=== PATIENT | female | born 1995 | race Caucasian/White ===

== ENCOUNTER 2016-03-11 14:50 | Emergency (ER) | payer BC ==
[2016-03-11] MEDS ORDERED: Acetaminophen 500 MG TAB ONE (15:44)
[2016-03-11 16:14] LABS: Bilirubin Negative (Negative); Blood, Urine Moderate (Negative); Glucose, Urine (Dipstick) Negative (Negative); Ketone, Urine 15 mg/dL (Negative); Nitrite Negative (Negative); Protein, Urine (Dipstick) Negative (Neg-Trace); Urobilinogen 0.2 mg/dL (0.2-1.0)
[2016-03-11 16:22] LABS: Bacteria/HPF 1+ HPF (None Seen); Squamous Epithelial 0-3 HPF (0-3); WBC/HPF 0-3 HPF (0-3)
[2016-03-11] MEDS ORDERED: Cephalexin 500 MG CAP ONE (16:31)
--- NOTE | 2016-03-11 16:35 | ERRECORD ---
[facility] EMERGENCY RECORD HPI BACK (16:22 JLOY) CHIEF COMPLAINT: Patient presents for evaluation of Pt with constant low back pain since waking up this am. No other symptoms. She reports it feels a little like period cramps. She is 25 wks with an uncomplicated . Decreased appetite today. HISTORIAN: History provided by patient. MECHANISM OF INJURY: No apparent mechanism of injury. LOCATION: Symptoms are localized to the back, to lumbar spine, left lumbar region, right lumbar region. QUALITY: Pain is dull in nature. TIME COURSE: Patient unable to describe onset of symptoms, There has been no change in the patient's symptoms over time. ASSOCIATED WITH: No associated abdominal pain, No associated bladder incontinence, No associated bowel incontinence, No associated dysuria, No associated fever, No associated motor weakness, No associated numbness, No associated problems with urination, No associated radiation of pain, No associated sciatica, No associated tingling. EXACERBATED BY: Patient's condition exacerbated by movement. RELIEVED BY: Patient's condition relieved by nothing. ROS (16:23 JLOY) CONSTITUTIONAL: Historian denies chills, denies fever. ENT: Historian denies rhinorrhea, denies sore throat. CARDIOVASCULAR: Historian denies chest pain. RESPIRATORY: Historian denies cough, denies shortness of breath, denies sputum. GI: Historian denies abdominal pain, reports appetite changes, denies diarrhea, denies vomiting. GENITOURINARY FEMALE: Historian denies dysuria, denies frequency, denies hematuria, reports , denies vaginal bleeding, denies vaginal discharge. MUSCULOSKELETAL: Historian reports back pain. NEUROLOGIC: Historian denies dizziness, denies headache. PAST MEDICAL HISTORY MEDICAL HISTORY: Flu vaccine up to date, Tetanus immunization up to date, No past medical history. (14:58 JNOL) FEMALE SURGICAL HISTORY: Patient has no surgical history. (14:58 JNOL) PSYCHIATRIC HISTORY: Psychiatric history includes, anxiety, depression. (14:58 JNOL) SOCIAL HISTORY: Patient currently uses tobacco, Patient denies alcohol use, Patient denies drug use,. (14:58 JNOL) NOTES: Nursing records reviewed, Agree with nursing records. (16:25 JLOY) KNOWN ALLERGIES &a-1R&a+25V*p+0X*b3730J*c202B*c15G*c2P*p-0X&a-25V&a+1R Name: Kristy Naranjo : 1995 F20 MedRec: [id number] AcctNum: [id number] Prepared: Sat Mar 11, 2016 16:46 by Interface Page 1 of 3 pMD [facility] EMERGENCY RECORD No Known Allergies CURRENT MEDICATIONS No recorded medications VITAL SIGNS VITAL SIGNS: BP: 161/82, Pulse: 92, Resp: 16, Temp: 97.7 (Oral), Pain: 7, O2 sat: 99 on Room Air, Time: 03/11/2016 14:55. (14:55 JNOL) BP: 135/78, Pulse: 86, Resp: 16, Pain: 7, O2 sat: 99 on Room Air, Time: 03/11/2016 16:18. (16:18 JNOL) PHYSICAL EXAM (16:24 JLOY) CONSTITUTIONAL: Vital Signs Reviewed, Patient appears non toxic, Patient alert and oriented to person, place and time. EYES: Eye exam included findings of eyelids normal to inspection, Pupils equally round and reactive to light, Conjunctiva normal. ENT: Mouth exam normal, mucous membranes moist. RESPIRATORY CHEST: Respiratory exam included findings of no respiratory distress, Breath sounds clear, No wheezing, No rales, No rhonchi, Chest exam included findings of chest movement symmetrical. CARDIOVASCULAR: Cardiovascular exam included findings of heart rate regular rate and rhythm, Heart sounds normal. ABDOMEN FEMALE: Abdominal exam included findings of abdomen nontender, Bowel sounds normal, Gravid uterus consistent with dates, nontender. BACK: Back exam included findings of normal inspection, range of motion normal, no tenderness. UPPER EXTREMITY: Upper extremity exam included findings of inspection normal, Radial pulse normal, no cyanosis, no clubbing, no edema. LOWER EXTREMITY: Lower extremity exam included findings of inspection normal, no edema, no calf tenderness. NEURO: Neuro exam findings include patient oriented to person, place and time, [place] coma scale 15, Speech normal. SKIN: Skin exam included findings of skin warm, dry, and normal in color, no rash. PSYCHIATRIC: Normal affect. MEDICATION ADMINISTRATION SUMMARY Drug Name: Keflex, Dose Ordered: 500 mg, Route: Oral, Status: Given, Time: 16:36 03/11/2016, Drug Name: acetaminophen oral, Dose Ordered: 1000 mg, Route: Oral, Status: Given, Time: 15:47 03/11/2016, Detailed record available in Medication Service section. PROBLEM LIST No recorded problems DIAGNOSIS (16:28 JOSAFAT) &a-1R&a+25V*p+0X*[id number]*c202B*c15G*c2P*p-0X&a-25V&a+1R Name: Kristy Naranjo : 1995 F20 MedRec: [id number] AcctNum: [id number] Prepared: Jesse Mar 11, 2016 16:46 by Interface Page 2 of 3 pMD [facility] EMERGENCY RECORD FINAL: PRIMARY: Low back pain, ADDITIONAL: UTI. PRESCRIPTION (16:28 JOSAFAT) Keflex: CAPSULE : 500 mg : ORAL : Quantity: 500 Unit: mg Route: ORAL Schedule: 3 times a day Dispense: 10 days May substitute. Refills: No Refills . NOTES: No Refills. DISPOSITION PATIENT: Disposition Type: Discharge, Disposition: *Discharge Home. (16:28 JOSAFAT) Patient left the department. (16:39 MARY ALICE) Kolb: JOSAFAT=MD Paul, Kian WHEAT=MINERVA Paul, Svetlana &a-1R&a+25V*p+0X*o0569N*c202B*c15G*c2P*p-0X&a-25V&a+1R Name: Kristy Naranjo : 1995 F20 MedRec: [id number] AcctNum: [id number] Prepared: Jesse Mar 11, 2016 16:46 by Interface Page 3 of 3 pMD MTDD
--- NOTE | 2016-03-11 16:40 | PICIS ---
[facility] EMERGENCY RECORD TRIAGE (14:57 JNOL) TRIAGE NOTES: Patient states she is 25 weeks ([facility] is OB) and has been having lower back pain all day. Patient states that she can normally get pain to stop, but has been unable to do so today. Denies bleeding or problems urinating or abdominal pain. (14:57 JNOL) PATIENT: NAME: Kristy Naranjo, AGE: 20, GENDER: female, : Sat 1995, TIME OF GREET: Sat Mar 11, 2016 14:51, PREFERRED LANGUAGE: Tajik, ETHNICITY: Not or , ECODE BILLING MAP: [facility], SSN: [id number], Zip Code: [address], KG WEIGHT: 74.84, PHONE: , , , PERSON ID: [id number], PCP: MD RUIZ RUSSELL. (14:57 JNOL) COMPLAINT: LOW BACK PAIN. (14:57 JNOL) ADMISSION: URGENCY: 3 Urgent, ADMISSION SOURCE: Home, TRANSPORT: Walk-in, BED: ER -04. (14:57 JNOL) SIRS SCORING: Heart Rate 55-109 (0), Temp range 96.8-101.1 (0), respiratory rate 12-24 (0), Mental Status altered: no (0). (14:58 JNOL) TRIAGE SCREENING: Patient denies suicidal ideation, Patient denies presence of domestic violence. (14:58 JNOL) LMP: Last menstrual period: 09/19/2015, Estimated conception 10/03/2015, Estimated due date 06/25/2016, Estimated age 24 weeks, 6 days, Patient states she is , , P: 0, AB: 0. (14:58 JNOL) PROVIDERS: TRIAGE NURSE: Svetlana Paul RN. (14:57 JNOL) VITAL SIGNS: BP 161/82, Pulse 92, Resp 16, Temp 97.7, (Oral), Pain 7, O2 Sat 99, on Room Air, Time 03/11/2016 14:55. (14:55 JNOL) PREVIOUS VISIT ALLERGIES: No Known Drug Allergies. (14:57 JNOL) No Known Drug Allergies. (14:58 JNOL) KNOWN ALLERGIES No Known Allergies CURRENT MEDICATIONS No recorded medications VITAL SIGNS VITAL SIGNS: BP: 161/82, Pulse: 92, Resp: 16, Temp: 97.7 (Oral), Pain: 7, O2 sat: 99 on Room Air, Time: 03/11/2016 14:55. (14:55 JNOL) BP: 135/78, Pulse: 86, Resp: 16, Pain: 7, O2 sat: 99 on Room Air, Time: 03/11/2016 16:18. (16:18 JNOL) NURSING ASSESSMENT: BACK (15:06 JNOL) CONSTITUTIONAL: Patient arrives ambulatory, Gait steady, History obtained from patient, Patient appears comfortable, Patient cooperative, Patient alert, Oriented to person, place and time, Skin warm, Skin dry, Skin normal in color, Mucous membranes pink, Mucous membranes moist, Patient is well-groomed. PAIN: aching pain, cramping pain, to the &a-1R&a+25V*p+0X*a7844N*c202B*c15G*c2P*p-0X&a-25V&a+1R Name: Kristy Naranjo : 1995 F20 MedRec: [id number] AcctNum: [id number] Prepared: Jesse Mar 11, 2016 16:52 by Interface Page 1 of 6 pMD [facility] EMERGENCY RECORD lower back, on a scale 0-10 patient rates pain as 7. BACK: Back assessment findings include no complaints of tenderness, no paresthesias to extremities, no weakness to extremities, no incontinence of bowel or bladder, Right radial pulse +3(easily palpated, considered normal), Left radial pulse +3(easily palpated, considered normal), Left dorsalis pedis pulse +3(easily palpated, considered normal), Right dorsalis pedis pulse +3(easily palpated, considered normal). NECK: Neck assessment findings include trachea midline, no jugular vein distention noted, no lymphadenopathy, no tenderness, no pain with range of motion, Patient not in spinal immobilization on arrival, Inspection findings include no abrasions, Inspection findings include no bite poole, Inspection findings include no garnett, Inspection findings include no cysts, Inspection findings include no deformity, Inspection findings include no ecchymosis, Inspection findings include no foreign body, Inspection findings include no lacerations, Inspection findings include no lesions, Inspection findings include no pressure ulcer, Inspection findings include no puncture wounds, Inspection findings include no rash, Inspection findings include no redness, Inspection findings include no signs of infection, Inspection findings include no swelling. NOTES: Patient tolerated procedure well, Notes: Patient 25 weeks , denies any abdominal pain, bleeding or difficulty urinating. SAFETY: Side rails up, Cart/Stretcher in lowest position, Family at bedside, Call light within reach, Hospital ID band on. NURSING PROCEDURE: DISCHARGE NOTE (16:36 JNOL) DISCHARGE: Patient discharged to home, ambulating without assistance, driving self, accompanied by other family member, Discharge instructions given to patient, Simple or moderate discharge teaching performed, by MINERVA Mota, When to return to ER, follow up with PCP, prescriptions, Prescriptions given and instructions on side effects given, Name of prescription(s) given: Keflex, Above person(s) verbalized understanding of discharge instructions and follow-up care, Patient treated and evaluated by physician. BELONGINGS: Belongings and valuables with patient at time of discharge include:, Belongings remain with patient. NOTES: Patient tolerated procedure well. NURSING PROCEDURE: NURSE NOTES NURSES NOTES: Notes: ERMD at bedside. (15:28 JNOL) Patient assisted to bathroom with steady gait. (15:37 JNOL) NURSING PROCEDURE: URINE COLLECTION (15:48 JNOL) URINE COLLECTION FEMALE: Urine collected by mid-stream clean catch, Output amount (mL) 40, urine yellow in color, and cloudy, Specimen labeled in the presence of the patient and sent to lab. &a-1R&a+25V*p+0X*d8514V*c202B*c15G*c2P*p-0X&a-25V&a+1R Name: Kristy Naranjo : 1995 F20 MedRec: [id number] AcctNum: [id number] Prepared: Jesse Mar 11, 2016 16:52 by Interface Page 2 of 6 pMD [facility] EMERGENCY RECORD ORDER DETAILS Order Name: Culture, Urine, Status: Active, Time: 16:26 03/11/2016, User: JOSAFAT, - Ordered for: MD Miller Joshua, - Entered by: MD Miller Joshua - [facility] Mar 11, 2016 16:26, - Quantity: 1, Order Name: Urinalysis w/ Rflx Microscopic, Status: Active, Time: 15:32 03/11/2016, User: JOSAFAT, - Ordered for: MD Miller Joshua, - Entered by: MD Miller Joshua - [facility] Mar 11, 2016 15:32, - Quantity: 1. MEDICATION ADMINISTRATION SUMMARY Drug Name: Keflex, Dose Ordered: 500 mg, Route: Oral, Status: Given, Time: 16:36 03/11/2016, Drug Name: acetaminophen oral, Dose Ordered: 1000 mg, Route: Oral, Status: Given, Time: 15:47 03/11/2016, Detailed record available in Medication Service section. MEDICATION SERVICE acetaminophen oral: Order: acetaminophen oral (acetaminophen) - Dose: 1000 mg : Oral Ordered by: Kian Miller MD Entered by: Kian Miller MD [facility] Mar 11, 2016 15:40 , Acknowledged by: Svetlana Paul RN Sat Mar 11, 2016 15:43 Documented as given by: Svetlana Paul RN Sat Mar 11, 2016 15:47 Patient, Medication, Dose, Route and Time verified prior to administration. Amount given: 1 g, Site: Medication administered P.O., Correct patient, time, route, dose and medication confirmed prior to administration, Patient advised of actions and side-effects prior to administration, Allergies confirmed and medications reviewed prior to administration, Patient in position of comfort, Side rails up, Cart in lowest position, Family at bedside. Keflex: Order: Keflex (cephalexin monohydrate) - Dose: 500 mg : Oral Ordered by: Kian Miller MD Entered by: Kian Miller MD [facility] Mar 11, 2016 16:27 , Acknowledged by: Svetlana Paul RN Sat Mar 11, 2016 16:28 Documented as given by: Svetlana Paul RN [facility] Mar 11, 2016 16:36 Patient, Medication, Dose, Route and Time verified prior to administration. Amount given: 500 mg, Site: Medication administered P.O., Correct patient, time, route, dose and medication confirmed prior to administration, Patient advised of actions and side-effects prior to administration, Allergies confirmed and medications reviewed prior to administration, Patient in position of comfort, Side rails up, Cart in lowest position, Family at bedside. &a-1R&a+25V*p+0X*k8474U*c202B*c15G*c2P*p-0X&a-25V&a+1R Name: Kristy Naranjo : 1995 F20 MedRec: [id number] AcctNum: [id number] Prepared: Sat Mar 11, 2016 16:52 by Interface Page 3 of 6 pMD [facility] EMERGENCY RECORD HPI BACK (16:22 [facility]) CHIEF COMPLAINT: Patient presents for evaluation of Pt with constant low back pain since waking up this am. No other symptoms. She reports it feels a little like period cramps. She is 25 wks with an uncomplicated . Decreased appetite today. HISTORIAN: History provided by patient. MECHANISM OF INJURY: No apparent mechanism of injury. LOCATION: Symptoms are localized to the back, to lumbar spine, left lumbar region, right lumbar region. QUALITY: Pain is dull in nature. TIME COURSE: Patient unable to describe onset of symptoms, There has been no change in the patient's symptoms over time. ASSOCIATED WITH: No associated abdominal pain, No associated bladder incontinence, No associated bowel incontinence, No associated dysuria, No associated fever, No associated motor weakness, No associated numbness, No associated problems with urination, No associated radiation of pain, No associated sciatica, No associated tingling. EXACERBATED BY: Patient's condition exacerbated by movement. RELIEVED BY: Patient's condition relieved by nothing. ROS (16:23 [facility]) CONSTITUTIONAL: Historian denies chills, denies fever. ENT: Historian denies rhinorrhea, denies sore throat. CARDIOVASCULAR: Historian denies chest pain. RESPIRATORY: Historian denies cough, denies shortness of breath, denies sputum. GI: Historian denies abdominal pain, reports appetite changes, denies diarrhea, denies vomiting. GENITOURINARY FEMALE: Historian denies dysuria, denies frequency, denies hematuria, reports , denies vaginal bleeding, denies vaginal discharge. MUSCULOSKELETAL: Historian reports back pain. NEUROLOGIC: Historian denies dizziness, denies headache. PAST MEDICAL HISTORY MEDICAL HISTORY: Flu vaccine up to date, Tetanus immunization up to date, No past medical history. (14:58 JNOL) FEMALE SURGICAL HISTORY: Patient has no surgical history. (14:58 JNOL) PSYCHIATRIC HISTORY: Psychiatric history includes, anxiety, depression. (14:58 JNOL) SOCIAL HISTORY: Patient currently uses tobacco, Patient denies alcohol use, Patient denies drug use,. (14:58 JNOL) NOTES: Nursing records reviewed, Agree with nursing records. (16:25 JLOY) &a-1R&a+25V*p+0X*m9089N*c202B*c15G*c2P*p-0X&a-25V&a+1R Name: Kristy Naranjo : 1995 F20 MedRec: [id number] AcctNum: [id number] Prepared: [facility] Mar 11, 2016 16:52 by Interface Page 4 of 6 pMD [facility] EMERGENCY RECORD PHYSICAL EXAM (16:24 JLOY) CONSTITUTIONAL: Vital Signs Reviewed, Patient appears non toxic, Patient alert and oriented to person, place and time. EYES: Eye exam included findings of eyelids normal to inspection, Pupils equally round and reactive to light, Conjunctiva normal. ENT: Mouth exam normal, mucous membranes moist. RESPIRATORY CHEST: Respiratory exam included findings of no respiratory distress, Breath sounds clear, No wheezing, No rales, No rhonchi, Chest exam included findings of chest movement symmetrical. CARDIOVASCULAR: Cardiovascular exam included findings of heart rate regular rate and rhythm, Heart sounds normal. ABDOMEN FEMALE: Abdominal exam included findings of abdomen nontender, Bowel sounds normal, Gravid uterus consistent with dates, nontender. BACK: Back exam included findings of normal inspection, range of motion normal, no tenderness. UPPER EXTREMITY: Upper extremity exam included findings of inspection normal, Radial pulse normal, no cyanosis, no clubbing, no edema. LOWER EXTREMITY: Lower extremity exam included findings of inspection normal, no edema, no calf tenderness. NEURO: Neuro exam findings include patient oriented to person, place and time, [place] coma scale 15, Speech normal. SKIN: Skin exam included findings of skin warm, dry, and normal in color, no rash. PSYCHIATRIC: Normal affect. EVENTS TRANSFER: Triage to Emergency Emergency Room -04. (Sat Mar 11, 2016 14:57 JNOL) Removed from Emergency Emergency Room -04. (16:39 JNOL) PROBLEM LIST No recorded problems DIAGNOSIS (16:28 JLOY) FINAL: PRIMARY: Low back pain, ADDITIONAL: UTI. DISPOSITION PATIENT: Disposition Type: Discharge, Disposition: *Discharge Home. (16:28 JLOY) Patient left the department. (16:39 JNOL) INSTRUCTION (16:30 JLOY) DISCHARGE: UTI CYSTITIS FEMALE ADULT, LOW BACK PAIN GENERAL. FOLLOWUP: MD SARA, [address] [address], [phone], Jenelle SULTANA, [facility] [id number], [phone], Follow up with Specialist in 3-4 days. &a-1R&a+25V*p+0X*x2465G*c202B*c15G*c2P*p-0X&a-25V&a+1R Name: Kristy Naranjo : 1995 F20 MedRec: [id number] AcctNum: [id number] Prepared: [facility] Mar 11, 2016 16:52 by Interface Page 5 of 6 pMD [facility] EMERGENCY RECORD PRESCRIPTION (16:28 JLOY) Keflex: CAPSULE : 500 mg : ORAL : Quantity: 500 Unit: mg Route: ORAL Schedule: 3 times a day Dispense: 10 days May substitute. Refills: No Refills . NOTES: No Refills. IMAGING (16:38 JNOL) *DISCHARGE INSTRUCTIONS RECEIPT: Image captured from scanner. Page 2 added. Image captured from scanner. *SUPPLY CHARGE SHEET: Image captured from scanner. ADMIN (16:30 JL) DIGITAL SIGNATURE: MD Miller Joshua. RESULTS (16:26 JL) LABORATORY: Urine Microscopic Collection DT: [facility] Mar 11, 2016 16:05, *RBC/HPF 11-20 - H HPF, Range (0-3), WBC/HPF 0-3 HPF, Range (0-3), Squamous Epithelial 0-3 HPF, Range (0-3), *Bacteria/HPF 1+ - H HPF, Range (None Seen). Urinalysis w/ Rflx Microscopic Collection DT: [facility] Mar 11, 2016 16:05, Color Yellow , Range (Yellow), Clarity SL HAZY , Range (Clear), Specific [place], Urine 1.020 , Range (1.005-1.030), pH, Urine 7.0 , Range (5.0-9.0), Leukocyte Negative , Range (Negative), Nitrite Negative , Range (Negative), Protein, Urine (Dipstick) Negative mg/dL, Range (Neg-Trace), Glucose, Urine (Dipstick) Negative mg/dL, Range (Negative), *Ketone, Urine 15 - H mg/dL, Range (Negative), Urobilinogen 0.2 mg/dL, Range (0.2-1.0), Bilirubin Negative , Range (Negative), *Blood, Urine Moderate - H , Range (Negative). Kolb: JLOY=MD Paul, Kian GALLOOL=MINERVA Paul, Svetlana &a-1R&a+25V*p+0X*s0813I*c202B*c15G*c2P*p-0X&a-25V&a+1R Name: Kristy Naranjo : 1995 F20 MedRec: [id number] AcctNum: [id number] Prepared: Jesse Mar 11, 2016 16:52 by Interface Page 6 of 6 pMD MTDD
== END 2016-03-11 16:36 | disposition home or self-care (01) ==
LOC: NAV ERS 14:50
DX: O23.42 Unspecified infection of urinary tract in pregnancy, second trimester (principal); O99.342 Other mental disorders complicating pregnancy, second trimester; Z3A.25 25 weeks gestation of pregnancy
CPT/HCPCS: 81003; 81015; 87086; 99283